=== PATIENT | female | born 1960 | race Caucasian/White ===

== ENCOUNTER 2018-08-22 18:19 | Emergency (ER) | payer MEDICARE, OTHER ==
[~2018-08-22] VITALS: Ht 165.1 cm; Wt 74.8 kg
[2018-08-22 19:58] LABS: ABSOLUTE LYMPHOCYTES 0.7 thou/uL (0.8-5.3); ABSOLUTE MONOCYTES 0.3 thou/uL (0.0-1.2); ABSOLUTE NEUTROPHILS 3.7 thou/uL (1.6-8.1); BASOPHILS 0.4 %; EOSINOPHILS 0.8 %; HEMATOCRIT 40.4 % (37.0-47.0); HEMOGLOBIN 13.7 gm/dL (12.0-15.0); LYMPHOCYTES 14.4 %; MCH 30.7 pg (26.0-34.0); MCHC 33.9 g/dL (28.0-37.0); MCV 90.5 fL (80.0-100.0); MONOCYTES 6.4 %; MPV 8.6 fl. (7.2-11.1); NUCLEATED RBCS 0 /100WBC; PLATELET COUNT* 156 thou/uL (150-400); RBC 4.46 mil/uL (4.20-5.00); RDW-CV 14.8 % (10.5-14.5); WBC 4.7 thou/uL (4.0-11.0)
[2018-08-22 20:06] LABS: APTT 30.4 Seconds (25.0-31.3)
[2018-08-22 20:09] LABS: CALCIUM 9.2 mg/dL (8.5-10.1); CREATININE 1.2 mg/dL (0.6-1.3); POTASSIUM 4.7 mmol/L (3.5-5.1)
[2018-08-22 20:13] LABS: ALBUMIN 3.2 g/dL (3.4-5.0); TOTAL BILIRUBIN 0.5 mg/dL (<0.1-1.0); TOTAL PROTEIN 7.1 g/dL (6.4-8.2)
[2018-08-22 21:06] VITALS: BP 140/76
== END 2018-08-22 21:09 | disposition home or self-care (01) ==
LOC: M.ERS 18:19
PROVIDERS: Family Medicine
DX: S91.102A Unspecified open wound of left great toe without damage to nail, initial encounter (principal); S09.8XXA Other specified injuries of head, initial encounter; F17.210 Nicotine dependence, cigarettes, uncomplicated; Z94.4 Liver transplant status; Z88.6 Allergy status to analgesic agent; W18.39XA Other fall on same level, initial encounter; Y93.89 Activity, other specified; Y92.89 Other specified places as the place of occurrence of the external cause; Y99.8 Other external cause status

== ENCOUNTER 2018-10-06 05:49 | Emergency (ER) | payer MEDICARE, OTHER ==
[~2018-10-06] VITALS: Ht 165.1 cm; Wt 68.0 kg
[2018-10-06] MEDS ORDERED: PROGRAF1 MG PO (05:59)
[2018-10-06] MEDS ORDERED: GEODON60 MG PO (06:00)
[2018-10-06] MEDS ORDERED: ALPRAZOLAM ER1 MG PO (06:00)
[2018-10-06] MEDS ORDERED: OXYCODONE HCL 55 MG PO (06:37)
[2018-10-06 06:45] VITALS: BP 141/70
== END 2018-10-06 06:46 | disposition home or self-care (01) ==
LOC: M.ERS 05:49
DX: M25.512 Pain in left shoulder (principal); F17.210 Nicotine dependence, cigarettes, uncomplicated; Z98.85 Transplanted organ removal status; Z88.6 Allergy status to analgesic agent

== ENCOUNTER 2019-10-16 17:51 | Emergency (ER) | payer MEDICARE, OTHER ==
[~2019-10-16] VITALS: Ht 165.1 cm; Wt 74.8 kg
[~2019-10-16 17:51] MED LIST: ALPRAZOLAM ER1 MG PO; GEODON60 MG PO; OXYCODONE HCL 55 MG PO; PROGRAF1 MG PO
[2019-10-16 18:22] VITALS: BP 121/80
== END 2019-10-16 18:25 | disposition home or self-care (01) ==
LOC: M.ERS 17:51
DX: S40.862A Insect bite (nonvenomous) of left upper arm, initial encounter (principal); S40.861A Insect bite (nonvenomous) of right upper arm, initial encounter; S80.862A Insect bite (nonvenomous), left lower leg, initial encounter; S80.861A Insect bite (nonvenomous), right lower leg, initial encounter; F17.210 Nicotine dependence, cigarettes, uncomplicated; Z88.6 Allergy status to analgesic agent; Z79.899 Other long term (current) drug therapy; Z94.4 Liver transplant status; W57.XXXA Bitten or stung by nonvenomous insect and other nonvenomous arthropods, initial encounter; Y93.89 Activity, other specified; Y92.89 Other specified places as the place of occurrence of the external cause; Y99.9 Unspecified external cause status

== ENCOUNTER 2019-11-19 15:27 | Emergency (ER) | payer MEDICARE, OTHER ==
[~2019-11-19] VITALS: Ht 170.2 cm; Wt 77.1 kg
[2019-11-19 16:46] VITALS: BP 125/70
== END 2019-11-19 16:46 | disposition home or self-care (01) ==
LOC: M.ERS 15:27
DX: S61.212A Laceration without foreign body of right middle finger without damage to nail, initial encounter (principal); F17.210 Nicotine dependence, cigarettes, uncomplicated; Z79.899 Other long term (current) drug therapy; Z88.6 Allergy status to analgesic agent; W23.0XXA Caught, crushed, jammed, or pinched between moving objects, initial encounter; Y93.89 Activity, other specified; Y92.89 Other specified places as the place of occurrence of the external cause; Y99.8 Other external cause status

== ENCOUNTER 2020-01-22 11:16 | Emergency (ER) | payer MEDICARE, OTHER ==
[~2020-01-22] VITALS: Ht 167.6 cm; Wt 72.6 kg
[~2020-01-22 11:16] MED LIST changes: -ALPRAZOLAM ER1 MG PO; +ALPRAZOLAM2 MG PO; +PROGRAF 1 MG1 MG PO; -PROGRAF1 MG PO
[2020-01-22] MEDS ORDERED: CHANTIX1 MG PO (11:47)
[2020-01-22] MEDS ORDERED: LAMICTAL 25 MG25 MG PO (11:47)
[2020-01-22 12:29] LABS: ABSOLUTE LYMPHOCYTES 0.8 thou/uL (0.8-5.3); ABSOLUTE MONOCYTES 0.6 thou/uL (0.0-1.2); ABSOLUTE NEUTROPHILS 4.6 thou/uL (1.6-8.1); BASOPHILS 0.4 %; EOSINOPHILS 0.5 %; HEMATOCRIT 46.2 % (37.0-47.0); HEMOGLOBIN 15.9 gm/dL (12.0-15.0); LYMPHOCYTES 12.7 %; MCH 31.4 pg (26.0-34.0); MCHC 34.4 g/dL (28.0-37.0); MCV 91.4 fL (80.0-100.0); MONOCYTES 9.7 %; MPV 8.2 fl. (7.2-11.1); NUCLEATED RBCS 0 /100WBC; PLATELET COUNT* 146 thou/uL (150-400); POLYS 76.7 %; RBC 5.05 mil/uL (4.20-5.00)
[2020-01-22 12:53] LABS: ALBUMIN 3.8 g/dL (3.4-5.0); CREATININE 1.5 mg/dL (0.6-1.3); MAGNESIUM 2.4 mg/dL (1.8-2.4); POTASSIUM 4.1 mmol/L (3.5-5.1); TOTAL BILIRUBIN 0.9 mg/dL (<0.1-1.0); TOTAL PROTEIN 8.2 g/dL (6.4-8.2)
[2020-01-22 13:05] LABS: CALCIUM 8.7 mg/dL (8.5-10.1)
[2020-01-22 14:35] LABS: URINE BILIRUBIN NEGATIVE (Negative); URINE BLOOD TRACE (Negative); URINE CLARITY CLEAR; URINE COLOR YELLOW; URINE GLUCOSE-RANDOM NEGATIVE (Negative); URINE KETONES 1+ (Negative); URINE LEUKOCYTES-REFLEX NEGATIVE (Negative); URINE NITRITE-REFLEX NEGATIVE (Negative); URINE PROTEIN TRACE (Negative); URINE SPECIFIC GRAVITY <= 1.005 (1.005-1.030); URINE UROBILINOGEN 0.2 E.U./dl (0.2-1.0)
[2020-01-22 14:42] LABS: AMP/METHAMP POSITIVE (Negative); BARBITURATES Negative (Negative); BENZODIAZEPINES Negative (Negative); COCAINE Negative (Negative); METHADONE Negative (Negative); OPIATES Negative (Negative); PCP Negative (Negative); THC Negative (Negative)
[2020-01-22] MEDS ORDERED: NORCO 5-325 TA1 EAC2 PO (14:53)
[2020-01-22] MEDS ORDERED: ROXICODONE5 M2 PO (15:06)
[2020-01-22 15:14] VITALS: BP 111/62
--- NOTE | 2020-01-26 08:17 | EKG ---
[place] [address] ELECTROCARDIOGRAM REPORT Name: KSENIA OZUNA Room: [facility]#: [id number] Admission: 01/22/20 Attend Phys: Discharge: 01/22/20 Date of : 58 Date of Service: 01/22/20 1255 Report #: [id number] THIS REPORT FOR: //name// [facility] ED Test Date: 2020-01-22 Test Time: 12:55:57 Pat Name: KSENIA OZUNA Department: Room: Gender: Director Of Plant Operations: BARBI : 1960 Requested By: Myra Dumont Order Number: [id number] MD: Minh Milton Measurements Intervals [place] Rate: 70 P: 66 ND: 145 QRS: 25 QRSD: 86 T: 63 QT: 399 QTc: 431 Interpretive Statements Sinus rhythm Biatrial enlargement No previous ECG available for comparison Electronically Signed On 01-26-2020 8:16:59 RELIEF MAN by Minh Milton [email or web address] <ELECTRONICALLY SIGNED> By: Suzan Milton MD, [facility] 01/26/20 0816 1255 1255 Suzan Milton MD, FAC /EPI
== END 2020-01-22 15:14 | disposition home or self-care (01) ==
LOC: M.ERS 11:16
PROVIDERS: Physician Assistant
DX: Q62.11 Congenital occlusion of ureteropelvic junction (principal); F17.210 Nicotine dependence, cigarettes, uncomplicated; Z79.899 Other long term (current) drug therapy; Z88.6 Allergy status to analgesic agent

== ENCOUNTER 2020-04-21 12:54 | Emergency (ER) | payer MEDICARE, OTHER ==
[~2020-04-21] VITALS: Ht 165.1 cm; Wt 77.1 kg
[~2020-04-21 12:54] MED LIST changes: +CHANTIX1 MG PO; +LAMICTAL 25 MG25 MG PO; +NORCO 5-325 TA1 EAC2 PO; +ROXICODONE5 M2 PO
[2020-04-21 13:24] LABS: ABSOLUTE EOSINOPHILS 0.2 thou/uL (0.0-0.7); ABSOLUTE LYMPHOCYTES 1.2 thou/uL (0.8-5.3); ABSOLUTE MONOCYTES 0.4 thou/uL (0.0-1.2); ABSOLUTE NEUTROPHILS 1.8 thou/uL (1.6-8.1); BASOPHILS 0.7 %; EOSINOPHILS 4.4 %; HEMATOCRIT 41.2 % (37.0-47.0); LYMPHOCYTES 33.5 %; MCH 32.8 pg (26.0-34.0); MCV 96.5 fL (80.0-100.0); MONOCYTES 11.1 %; MPV 7.9 fl. (7.2-11.1); NUCLEATED RBCS 0 /100WBC; PLATELET COUNT* 169 thou/uL (150-400); POLYS 50.3 %; RBC 4.27 mil/uL (4.20-5.00); RDW-CV 13.9 % (10.5-14.5); WBC 3.5 thou/uL (4.0-11.0)
[2020-04-21 13:36] LABS: CALCIUM 9.4 mg/dL (8.5-10.1); CREATININE 1.5 mg/dL (0.6-1.3); POTASSIUM 5.5 mmol/L (3.5-5.1)
[2020-04-21 13:40] LABS: ALBUMIN 3.8 g/dL (3.4-5.0); TOTAL BILIRUBIN 0.6 mg/dL (<0.1-1.0); TOTAL PROTEIN 7.5 g/dL (6.4-8.2)
[2020-04-21] MEDS ORDERED: OXYCODONE HCL 55 MG PO ×2 (14:32→14:34)
[2020-04-21 14:40] VITALS: BP 130/64
== END 2020-04-21 14:42 | disposition left against medical advice (07) ==
LOC: M.ERS 12:54
PROVIDERS: Physician Assistant
DX: M54.5 Low back pain (principal); R10.9 Unspecified abdominal pain; F41.9 Anxiety disorder, unspecified; F17.210 Nicotine dependence, cigarettes, uncomplicated; Z87.442 Personal history of urinary calculi; Z94.4 Liver transplant status; Z79.899 Other long term (current) drug therapy; Z88.8 Allergy status to other drugs, medicaments and biological substances

== ENCOUNTER 2020-06-02 02:47 | Emergency (ER) | payer MEDICARE, OTHER ==
[~2020-06-02] VITALS: Ht 167.6 cm; Wt 86.2 kg
[2020-06-02 03:17] LABS: URINE BILIRUBIN NEGATIVE (Negative); URINE BLOOD NEGATIVE (Negative); URINE CLARITY CLEAR; URINE COLOR YELLOW; URINE GLUCOSE-RANDOM NEGATIVE (Negative); URINE KETONES NEGATIVE (Negative); URINE LEUKOCYTES-REFLEX NEGATIVE (Negative); URINE NITRITE-REFLEX NEGATIVE (Negative); URINE PROTEIN NEGATIVE (Negative); URINE UROBILINOGEN 0.2 E.U./dl (0.2-1.0)
[2020-06-02] MEDS ORDERED: OXYCODONE HCL 55 MG PO (04:48)
[2020-06-02 05:03] VITALS: BP 130/82
== END 2020-06-02 05:03 | disposition home or self-care (01) ==
LOC: M.ERS 02:47
PROVIDERS: Emergency Medicine
DX: N13.30 Unspecified hydronephrosis (principal); F41.9 Anxiety disorder, unspecified; F17.210 Nicotine dependence, cigarettes, uncomplicated; Z94.4 Liver transplant status; Z79.899 Other long term (current) drug therapy; Z88.8 Allergy status to other drugs, medicaments and biological substances; Z88.6 Allergy status to analgesic agent

== ENCOUNTER 2020-06-23 10:29 | Inpatient (IN) | payer MEDICARE, OTHER ==
[~2020-06-23] VITALS: Ht 165.1 cm; Wt 87.1 kg
[2020-06-23 10:40] VITALS: BP 122/82
[2020-06-23 11:26] LABS: ABSOLUTE EOSINOPHILS 0.1 thou/uL (0.0-0.7); ABSOLUTE MONOCYTES 0.4 thou/uL (0.0-1.2); ABSOLUTE NEUTROPHILS 2.2 thou/uL (1.6-8.1); BASOPHILS 0.5 %; EOSINOPHILS 3.3 %; HEMATOCRIT 39.9 % (37.0-47.0); HEMOGLOBIN 13.4 gm/dL (12.0-15.0); LYMPHOCYTES 25.9 %; MCH 30.6 pg (26.0-34.0); MCHC 33.6 g/dL (28.0-37.0); MCV 91.2 fL (80.0-100.0); MONOCYTES 9.8 %; MPV 8.7 fl. (7.2-11.1); NUCLEATED RBCS 0 /100WBC; PLATELET COUNT* 154 thou/uL (150-400); POLYS 60.5 %; RBC 4.38 mil/uL (4.20-5.00); RDW-CV 13.1 % (10.5-14.5); WBC 3.7 thou/uL (4.0-11.0)
[2020-06-23 11:33] LABS: URINE BILIRUBIN NEGATIVE (Negative); URINE BLOOD 2+ (Negative); URINE CLARITY CLEAR; URINE COLOR YELLOW; URINE GLUCOSE-RANDOM NEGATIVE (Negative); URINE KETONES NEGATIVE (Negative); URINE LEUKOCYTES-REFLEX NEGATIVE (Negative); URINE NITRITE-REFLEX NEGATIVE (Negative); URINE PROTEIN NEGATIVE (Negative); URINE SPECIFIC GRAVITY 1.025 (1.005-1.030); URINE UROBILINOGEN 0.2 E.U./dl (0.2-1.0)
[2020-06-23 11:37] LABS: CREATININE 1.3 mg/dL (0.6-1.3); POTASSIUM 4.6 mmol/L (3.5-5.1)
[2020-06-23 11:40] LABS: SQUAMOUS 4-10 Moderate /LPF (0-3); URINE WBC-REFLEX 0-5 Rare /HPF (0-5)
[2020-06-23 11:41] LABS: BACTERIA-REFLEX 1-9 Few /HPF (None Seen); CASTS None Seen /LPF (None Seen); CRYSTALS None Seen /LPF (None Seen); MUCUS None Seen strn/LPF (None Seen)
[2020-06-23 11:42] LABS: ALBUMIN 3.4 g/dL (3.4-5.0); TOTAL BILIRUBIN 0.2 mg/dL (<0.1-1.0); TOTAL PROTEIN 7.1 g/dL (6.4-8.2)
[2020-06-23 14:15] VITALS: BP 96/57
[2020-06-23 14:35] VITALS: BP 130/75
--- NOTE | 2020-06-23 16:20 | EKG ---
[place] [address] ELECTROCARDIOGRAM REPORT Name: KSENIA OZUNA Room: [address]#: [id number] Admission: 06/23/20 Attend Phys: Julianna Dupree MD Discharge: Date of : 58 Date of Service: 06/23/20 1052 Report #: [id number] THIS REPORT FOR: //name// [facility] ED Test Date: 2020-06-23 Test Time: 10:52:03 Pat Name: KSENIA OZUNA Department: Room: [facility] Gender: F [employer] Facilitator: SONIA : 1960 Requested By: Morgan Rizo Order Number: [id number] MD: Christopher Carter Measurements Intervals [place] Rate: 67 P: 60 [place]: 147 QRS: -3 QRSD: 83 T: 37 QT: 392 QTc: 414 Interpretive Statements Sinus rhythm Baseline wander in lead(s) V6 Compared to ECG 01/22/2020 12:55:57 Atrial abnormality no longer present Electronically Signed On 06-23-2020 16:20:38 CDT by Christopher Carter [email or web address] <ELECTRONICALLY SIGNED> By: Christopher Carter MD, [facility] 06/23/20 1620 1052 1052 Christopher Carter MD, [facility] /EPI
[2020-06-23] MEDS ORDERED: LAMOTRIGINE250 MG PO (17:30)
--- NOTE | 2020-06-23 18:00 | NUR ---
PATIENT ARRIVED FROM ER THIS AFTERNOON. PATIENT SETTLED TO ROOM. HISTORY, ASSESSMENT AND VITALS COMPLETED AND DOCUMENTED. PATIENT HAS HAD COMPLAINTS OF LEFT FLANK PAIN, MORPHINE GIVEN X 1 AND HAS SCHEDULED TORADOL. PATIENT HAS GOOD APPETITE. PATIENT HAS SLEPT ON AND OFF. PATIENT IS UP STANDBY ASSIST. PATIENT DENIES ANY NEEDS AT THIS TIME. CALL LIGHT WITHIN REACH.
[2020-06-23 20:30] VITALS: BP 122/79
[2020-06-24 05:13] LABS: HEMATOCRIT 35.9 % (37.0-47.0); HEMOGLOBIN 12.2 gm/dL (12.0-15.0); MCH 31.1 pg (26.0-34.0); MCHC 33.9 g/dL (28.0-37.0); MCV 91.6 fL (80.0-100.0); RBC 3.92 mil/uL (4.20-5.00); WBC 2.5 thou/uL (4.0-11.0)
[2020-06-24 05:22] LABS: CALCIUM 10.1 mg/dL (8.5-10.1); CREATININE 1.4 mg/dL (0.6-1.3); POTASSIUM 4.8 mmol/L (3.5-5.1)
--- NOTE | 2020-06-24 07:48 | NUR ---
Oriented x 4 but forgetful. She is having L flank pain and rates it at 9 or 10. She does not think the IV toradol does anything for her. New IV started in LFA at 0206. She has NS at 125ml/hr. She has been NPO since midnight. Morphine helps her more for pain and she does sleep afterwards. She is up with stand by assist x 1.
[2020-06-24 07:50] VITALS: BP 125/64
--- NOTE | 2020-06-24 08:00 | NUR ---
DR. DANIEL NOTIFIED PT TAKES 1MG XANAX QID AT HOME. PT ALSO REPORTS MORPHINE AND TORADOL NOT HELPING FOR PAIN. NEW ORDERS PLACED IN EMAR. PHARMACY ALSO INFORMED RISPERDONE AND PROGRAF NOT IN PYXIS. WILL CONTINUE TO MONITOR.
--- NOTE | 2020-06-24 13:15 | NUR ---
Pt is A&O. Resides at home with . Independent. No DME. No hx of HH or SNF. Goal is home at dc, no needs anticipated. Work on pain control, iv hydration. Urology consulted. Anticipate dc in a few days.
[2020-06-24 16:00] VITALS: BP 106/58
--- NOTE | 2020-06-24 19:00 | NUR ---
PT DROWSY AT TIMES. PT VERY ANXIOUS THIS SHIFT. AT BEDSIDE OFF AND ON THROUGHOUT THE DAY. PAGED DR. DANIEL TO TALK TO REGARDING PAIN MANAGEMENT AND PLAN OF CARE THIS AFTERNOON. PT GIVEN MULTIPLE PAIN MEDS THIS SHIFT WITHOUT MUCH RELIEF OF CHRONIC PAIN. DR. DANIEL AWARE. PT ALSO COMPLAINS OF NAUSEA THIS SHIFT. PT TO XRAY VIA WHEELCHAIR THIS SHIFT. PT TOLERATING PO FOOD THIS EVENING WELL. IVF REMAIN INFUSING. PT VERY IMPULSIVE AT TIMES. CALL LIGHT REMAINS WITHIN REACH. WILL CONTINUE TO MONITOR.
[2020-06-24 21:23] VITALS: BP 112/55
[2020-06-25 04:02] LABS: HEMATOCRIT 36.4 % (37.0-47.0); HEMOGLOBIN 12.2 gm/dL (12.0-15.0); MCH 30.7 pg (26.0-34.0); MCHC 33.4 g/dL (28.0-37.0); MCV 92.2 fL (80.0-100.0); MPV 9.2 fl. (7.2-11.1); RBC 3.95 mil/uL (4.20-5.00); WBC 3.5 thou/uL (4.0-11.0)
--- NOTE | 2020-06-25 04:09 | NUR ---
PT A&O, PT O2 SAT 90% ON ROOM AIR - PLACED ON 1L NC, O2 SAT 94% ON 1L. IV FLUIDS INFUSING ORDERED. PRN PAIN AND ANTIEMETIC MEDS REQUESTED AND GIVEN ORDERED. PT UP WITH SBA. AT APPROX 0230 PT WAS AGGITATED CO PAIN, BED UNCOMFORTABLE, STATED "NOTHING'S BEING DONE TO HELP ME". PRN MORPHINE GIVEN ORDERED, RECLINER BROUGHT INTO ROOM, BOX LUNCH PROVIDED. PT BACK IN BED AFTER EATING BOX LUNCH, SLEEPING AT THIS TIME. WILL CONTINUE TO MONITOR.
[2020-06-25 04:23] LABS: CREATININE 1.5 mg/dL (0.6-1.3); MAGNESIUM 1.4 mg/dL (1.8-2.4); POTASSIUM 5.1 mmol/L (3.5-5.1); TOTAL BILIRUBIN 0.3 mg/dL (<0.1-1.0); TOTAL PROTEIN 6.5 g/dL (6.4-8.2)
--- NOTE | 2020-06-25 09:16 | NUR ---
Pt notified staff via call light during morning rounds that she would like her IV taken out as she was planning to leave. The TELEPHONE ANSWERER and this nurse walked into the room to assess the situation. Pt and her voiced that they would like to sign out of here as they are going to go to where her other doctors are and felt as if we "didn't have any answers for them". Pt was clear that their minds were made up and she was half dressed and ready to leave. TELEPHONE ANSWERER took the IV out while this nurse got AMA paperwork. Pt signed paperwork and began to dress herself. As pt and her walked by the nurses' desk, the pt stated that we did not use a good enough bandage for her IV site. This nurse offered to redress it but she stated "No." and kept walking towards the door.
== END 2020-06-25 09:15 | disposition left against medical advice (07) | DRG 694 ==
LOC: M.ERS 10:29 → M.TBA-ER 12:48 → M.ORTHSURG 15:04
PROVIDERS: Emergency Medicine Emergency Medical Services; Internal Medicine; ADMIT Family Medicine; ATTEND Family Medicine
DX: N13.2 Hydronephrosis with renal and ureteral calculous obstruction (principal); Z94.4 Liver transplant status; N17.0 Acute kidney failure with tubular necrosis; Q63.1 Lobulated, fused and horseshoe kidney; F41.9 Anxiety disorder, unspecified; R56.9 Unspecified convulsions; M48.061 Spinal stenosis, lumbar region without neurogenic claudication; M47.816 Spondylosis without myelopathy or radiculopathy, lumbar region; Z53.21 Procedure and treatment not carried out due to patient leaving prior to being seen by health care provider; Z20.822 Contact with and (suspected) exposure to COVID-19; Z79.899 Other long term (current) drug therapy; Z88.1 Allergy status to other antibiotic agents; Z88.8 Allergy status to other drugs, medicaments and biological substances

== ENCOUNTER 2020-11-20 22:53 | Emergency (ER) | payer MEDICARE, OTHER ==
[~2020-11-20] VITALS: Ht 165.1 cm; Wt 72.6 kg
[~2020-11-20 22:53] MED LIST changes: +LAMOTRIGINE250 MG PO
[2020-11-20 23:16] LABS: URINE BILIRUBIN NEGATIVE (Negative); URINE BLOOD NEGATIVE (Negative); URINE CLARITY CLEAR; URINE COLOR YELLOW; URINE GLUCOSE-RANDOM NEGATIVE (Negative); URINE KETONES NEGATIVE (Negative); URINE LEUKOCYTES-REFLEX NEGATIVE (Negative); URINE NITRITE-REFLEX POSITIVE (Negative); URINE PROTEIN NEGATIVE (Negative); URINE UROBILINOGEN 0.2 E.U./dl (0.2-1.0)
[2020-11-20 23:31] LABS: SQUAMOUS NONE SEEN /LPF (0-3); URINE RBC 0-2 Rare /HPF (0-2); URINE WBC-REFLEX None Seen /HPF (0-5)
[2020-11-20 23:32] LABS: AMORPHOUS URATES Few /LPF (None Seen); BACTERIA-REFLEX 1-9 Few /HPF (None Seen); CASTS None Seen /LPF (None Seen); MUCUS 0-3 Light strn/LPF (None Seen)
[2020-11-20 23:41] LABS: ABSOLUTE EOSINOPHILS 0.1 thou/uL (0.0-0.7); ABSOLUTE MONOCYTES 0.4 thou/uL (0.0-1.2); ABSOLUTE NEUTROPHILS 1.8 thou/uL (1.6-8.1); BASOPHILS 0.8 %; EOSINOPHILS 3.1 %; HEMATOCRIT 33.9 % (37.0-47.0); HEMOGLOBIN 11.8 gm/dL (12.0-15.0); LYMPHOCYTES 30.1 %; MCH 30.9 pg (26.0-34.0); MCHC 34.7 g/dL (28.0-37.0); MCV 89.2 fL (80.0-100.0); MONOCYTES 13.1 %; MPV 8.6 fl. (7.2-11.1); NUCLEATED RBCS 0 /100WBC; PLATELET COUNT* 155 thou/uL (150-400); POLYS 52.9 %; WBC 3.4 thou/uL (4.0-11.0)
[2020-11-20 23:48] LABS: CREATININE 1.7 mg/dL (0.6-1.3); POTASSIUM 4.9 mmol/L (3.5-5.1)
[2020-11-20 23:53] LABS: ALBUMIN 3.3 g/dL (3.4-5.0); TOTAL BILIRUBIN 0.3 mg/dL (<0.1-1.0); TOTAL PROTEIN 6.7 g/dL (6.4-8.2)
[2020-11-21] MEDS ORDERED: PYRIDIUM200 MG PO (01:36)
[2020-11-21] MEDS ORDERED: MACROBID 100 M100 M3 PO (01:36)
[2020-11-21] MEDS ORDERED: OXYCODONE HCL 55 MG PO (01:36)
[2020-11-21 02:01] VITALS: BP 113/73
== END 2020-11-21 02:01 | disposition home or self-care (01) ==
LOC: M.ERS 22:53
PROVIDERS: Personal Emergency Response Attendant
DX: N39.0 Urinary tract infection, site not specified (principal); R10.12 Left upper quadrant pain; R51.9 Headache, unspecified; F41.9 Anxiety disorder, unspecified; F17.210 Nicotine dependence, cigarettes, uncomplicated; Z94.4 Liver transplant status; Z79.899 Other long term (current) drug therapy; Z88.5 Allergy status to narcotic agent; Z88.6 Allergy status to analgesic agent; Z88.8 Allergy status to other drugs, medicaments and biological substances